=== PATIENT | female | born 1990 | race Caucasian/White ===

== ENCOUNTER 2018-07-28 21:04 | Inpatient (IN) | payer OTHER, MEDICAID ==
[2018-07-28 22:23] LABS: HEMATOCRIT 39.6 % (36.0-47.0); HEMOGLOBIN 13.7 g/dl (12.0-15.5); MEAN CORPUSCULAR HEMOGLOBIN 31.7 pg (27.0-33.0); MEAN CORPUSCULAR HGB CONC 34.6 g/dl (32.0-36.5); MEAN CORPUSCULAR VOLUME 91.7 fl (80.0-96.0); PLATELET COUNT, AUTOMATED 230 10^3/uL (150-450); RED BLOOD COUNT 4.32 10^6/uL (4.00-5.40); RED CELL DISTRIBUTION WIDTH 12.6 % (11.5-14.5); WHITE BLOOD COUNT 8.5 10^3/uL (4.0-10.0)
[2018-07-28 22:34] LABS: CONTROL LINE HCG INT CTR LINE PRESENT; HCG, SERUM QUALITATIVE NEGATIVE (NEGATIVE)
[2018-07-28 22:37] LABS: AMPHETAMINES LEVEL URINE NEGATIVE (NEGATIVE); BARBITURATES URINE NEGATIVE (NEGATIVE); BENZODIAZEPINES URINE NEGATIVE (NEGATIVE); CANNABINOIDS URINE POSITIVE (NEGATIVE); COCAINE METABOLITE URINE NEGATIVE (NEGATIVE); METHADONE URINE NEGATIVE (NEGATIVE); OPIATES URINE NEGATIVE (NEGATIVE); PHENCYCLIDINE URINE NEGATIVE (NEGATIVE)
[2018-07-28 22:48] LABS: ACETAMINOPHEN LEVEL < 2.0 UG/ML (10.0-30.0); ALBUMIN 4.1 GM/DL (3.2-5.2); ALBUMIN/GLOBULIN RATIO 1.52 (1.00-1.93); ALKALINE PHOSPHATASE 59 U/L (45-117); ALT/SGPT 20 U/L (12-78); ANION GAP 10 MEQ/L (8-16); AST/SGOT 13 U/L (7-37); BILIRUBIN,DIRECT 0.2 MG/DL (0.0-0.2); BILIRUBIN,TOTAL 0.6 MG/DL (0.2-1.0); BLOOD UREA NITROGEN 10 MG/DL (7-18); CALCIUM LEVEL 8.3 MG/DL (8.5-10.1); CARBON DIOXIDE LEVEL 24 MEQ/L (21-32); CHLORIDE LEVEL 108 MEQ/L (98-107); CREATININE FOR GFR 0.71 MG/DL (0.55-1.30); ETHYL ALCOHOL (ETHANOL) < 0.003 % (0.000-0.010); GLOMERULAR FILTRATION RATE > 60.0 (>60); GLUCOSE, FASTING 83 MG/DL (70-100); POTASSIUM SERUM 3.6 MEQ/L (3.5-5.1); SALICYLATE LEVEL 3.2 MG/DL (5.0-30.0); SODIUM LEVEL 142 MEQ/L (136-145); TOTAL PROTEIN 6.8 GM/DL (6.4-8.2)
[2018-07-28] MEDS ORDERED: MAALOX 30 ML SUSP *UDC PO (23:00)
[2018-07-28] MEDS ORDERED: MOM 30ML SUSPENSION UDC PO (23:00)
[2018-07-29] MEDS: traZODone 50 MG TAB PO (00:44)
[2018-07-29] MEDS: ACETAMINOPHEN TAB 650MG DOSE (2X325MG) PO ×2 (00:45→15:27)
[2018-07-29] MEDS: OMEPRAZOLE 20 MG CAP PO (09:58)
[2018-07-29] MEDS: INFLUENZA QUADRIVALENT PF VACCINE 0.5ML SYRINGE (90686) IM (10:05)
[2018-07-29] MEDS: NICOTINE 21MG/24HR 1 EA TRANSDERMAL TD (10:05)
[2018-07-29] MEDS ORDERED: hydrOXYzine 25 MG TAB PO (23:00)
[2018-07-29] MEDS: PROMETHAZINE 25 MG TAB PO (23:22)
[2018-07-29] MEDS: QUEtiapine FUMARATE 100 MG TAB PO (23:23)
[2018-07-30] MEDS: PROMETHAZINE 25 MG TAB PO (08:36)
[2018-07-30] MEDS: OMEPRAZOLE 20 MG CAP PO (08:36)
[2018-07-30] MEDS: NADOLOL 20MG TABLET PO (08:39)
[2018-07-30] MEDS: NICOTINE 21MG/24HR 1 EA TRANSDERMAL TD (08:39)
[2018-07-30] MEDS ORDERED: PROMETHAZINE 25 MG TAB PO (09:00)
[2018-07-30] MEDS ORDERED: hydrOXYzine 25 MG TAB PO (09:00)
[2018-07-30 11:16] LABS: BEDSIDE GLUCOSE 122 MG/DL (70-105)
[2018-07-30] MEDS: ACETAMINOPHEN 500 MG TAB PO (14:09)
[2018-07-30] MEDS ORDERED: QUEtiapine FUMARATE 100 MG TAB PO (21:00)
== END 2018-07-30 14:35 | disposition short-term general hospital (02) | DRG 753 ==
LOC: M ED 21:04 → M ED INP 22:47 → M PSY 23:45
DX: F31.60 Bipolar disorder, current episode mixed, unspecified (principal); Z91.14 Patient's other noncompliance with medication regimen; R45.851 Suicidal ideations; F12.90 Cannabis use, unspecified, uncomplicated; F60.3 Borderline personality disorder; K52.9 Noninfective gastroenteritis and colitis, unspecified; G47.00 Insomnia, unspecified; Z68.1 Body mass index [BMI] 19.9 or less, adult; F17.200 Nicotine dependence, unspecified, uncomplicated; Z79.899 Other long term (current) drug therapy

== ENCOUNTER 2018-07-30 14:53 | Inpatient (IN) | payer OTHER ==
[~2018-07-30 14:53] MED LIST: hydrOXYzine 25 MG TAB PO
[2018-07-30] MEDS: ACETAMINOPHEN 325 MG TAB PO (15:30)
[2018-07-30 15:57] LABS: BASO % 0.4 % (0.0-1.0); EOS # 0.2 10^3/uL (0.0-0.50); EOS % 2.8 % (0.0-3.0); HEMATOCRIT 38.9 % (36.0-47.0); HEMOGLOBIN 13.6 g/dl (12.0-15.5); IMMATURE GRANULOCYTE % 0.2 % (0-3.0); LYMPH # 1.6 10^3/uL (1.5-6.5); LYMPH % 19.3 % (24.0-44.0); MEAN CORPUSCULAR HEMOGLOBIN 31.6 pg (27.0-33.0); MEAN CORPUSCULAR VOLUME 90.3 fl (80.0-96.0); MONO # 0.5 10^3/uL (0.0-0.8); MONO % 6.1 % (0.0-5.0); NEUTROPHILS # 5.8 10^3/uL (1.8-7.7); NEUTROPHILS % 71.2 % (36.0-66.0); PLATELET COUNT, AUTOMATED 234 10^3/uL (150-450); RED BLOOD COUNT 4.31 10^6/uL (4.00-5.40); RED CELL DISTRIBUTION WIDTH 12.5 % (11.5-14.5); WHITE BLOOD COUNT 8.2 10^3/uL (4.0-10.0)
[2018-07-30 16:12] LABS: LACTIC ACID SEPSIS PROTOCOL 0.7 MMOL/L (0.4-2.0)
[2018-07-30 16:20] LABS: ANION GAP 4 MEQ/L (8-16); BLOOD UREA NITROGEN 13 MG/DL (7-18); C REACTIVE PROTEIN QUANTITATIV < 0.30 MG/DL (0.00-0.30); CALCIUM LEVEL 8.4 MG/DL (8.5-10.1); CARBON DIOXIDE LEVEL 27 MEQ/L (21-32); CHLORIDE LEVEL 108 MEQ/L (98-107); CREATININE FOR GFR 0.75 MG/DL (0.55-1.30); GLOMERULAR FILTRATION RATE > 60.0 (>60); GLUCOSE, FASTING 99 MG/DL (70-100); SODIUM LEVEL 139 MEQ/L (136-145); THYROID STIMULATING HORMONE 0.544 uIU/ML (0.358-3.740); TROPONIN I < 0.02 NG/ML (< 0.10)
[2018-07-30] MEDS: GASTROGRAFIN SOLUTION 30ML PO ×2 (16:24→16:53)
[2018-07-30] MEDS: METOCLOPRAMIDE INJ 10MG/2ML VIAL (J2765) IV (16:36)
[2018-07-30] MEDS: PANTOPRAZOLE 40MG INJ (PROTONIX) (C9113) IV (16:36)
[2018-07-30 16:37] LABS: ERYTHROCYTE SEDIMENTATION RATE 2 mm/hr (0-20)
[2018-07-30] MEDS: NS 1,000 ML IV (16:37)
[2018-07-30] MEDS ORDERED: ISOVUE-370 76% 100ML VIAL (Q9967) As Ordered (17:52)
[2018-07-30] MEDS ORDERED: KETOROLAC TROMETHAMINE 10 MG TAB PO (19:00)
[2018-07-30] MEDS: traMADol 50 MG TAB PO (19:06)
[2018-07-30] MEDS: ONDANSETRON 4 MG TAB (S0181) PO (19:07)
[2018-07-30] MEDS ORDERED: PILL CRUSHER/CUTTER 1 EACH XX (19:45)
[2018-07-30] MEDS ORDERED: QUEtiapine FUMARATE 200 MG TAB PO (21:00)
[2018-07-30] MEDS: ENOXAPARIN 30 MG/0.3 ML SYR (J1650) SC (21:03)
[2018-07-30] MEDS: QUEtiapine FUMARATE 100 MG TAB PO (21:03)
[2018-07-30] MEDS: ACETAMINOPHEN TAB 650MG DOSE (2X325MG) PO (22:59)
[2018-07-31 02:13] LABS: APPEARANCE, URINE HAZY (CLEAR); BACTERIA, URINE AUTO NEGATIVE (NEGATIVE); BILIRUBIN, URINE AUTO NEGATIVE (NEGATIVE); BLOOD, URINE BLOOD NEGATIVE (NEGATIVE); COLOR, URINE YELLOW (YELLOW); GLUCOSE, URINE (UA) AUTO NEGATIVE (NEGATIVE); KETONE, URINE AUTO NEGATIVE (NEGATIVE); LEUKOCYTE ESTERASE, URINE AUTO NEGATIVE (NEGATIVE); NITRITE, URINE AUTO NEGATIVE (NEGATIVE); PROTEIN, URINE AUTO NEGATIVE (NEGATIVE); RBC, URINE AUTO 0 /HPF (0-3); SPECIFIC GRAVITY URINE AUTO 1.035 (1.002-1.035); SQUAMOUS EPITHELIAL CELL UR AU 13 /HPF (0-6); WBC, URINE AUTO 3 /HPF (0-3)
[2018-07-31 02:48] LABS: TROPONIN I < 0.02 NG/ML (< 0.10)
[2018-07-31] MEDS: traMADol 50 MG TAB PO ×2 (05:21→13:35)
[2018-07-31] MEDS: NS 1,000 ML IV (05:22)
[2018-07-31 06:25] LABS: HEMATOCRIT 36.3 % (36.0-47.0); HEMOGLOBIN 12.3 g/dl (12.0-15.5); MEAN CORPUSCULAR HEMOGLOBIN 31.3 pg (27.0-33.0); MEAN CORPUSCULAR HGB CONC 33.9 g/dl (32.0-36.5); MEAN CORPUSCULAR VOLUME 92.4 fl (80.0-96.0); PLATELET COUNT, AUTOMATED 185 10^3/uL (150-450); RED BLOOD COUNT 3.93 10^6/uL (4.00-5.40); RED CELL DISTRIBUTION WIDTH 12.5 % (11.5-14.5); WHITE BLOOD COUNT 6.2 10^3/uL (4.0-10.0)
[2018-07-31 06:32] LABS: ANION GAP 7 MEQ/L (8-16); BLOOD UREA NITROGEN 8 MG/DL (7-18); CALCIUM LEVEL 7.7 MG/DL (8.5-10.1); CARBON DIOXIDE LEVEL 24 MEQ/L (21-32); CHLORIDE LEVEL 109 MEQ/L (98-107); CREATININE FOR GFR 0.73 MG/DL (0.55-1.30); GLOMERULAR FILTRATION RATE > 60.0 (>60); GLUCOSE, FASTING 104 MG/DL (70-100); POTASSIUM SERUM 3.5 MEQ/L (3.5-5.1); SODIUM LEVEL 140 MEQ/L (136-145); TROPONIN I < 0.02 NG/ML (< 0.10)
[2018-07-31] MEDS: CHLORHEXIDINE GLUCONATE 0.12 % 15ML UDC (PERIDEX ORAL RINSE) SSP ×2 (09:00)
[2018-07-31] MEDS: PANTOPRAZOLE 40MG INJ (PROTONIX) (C9113) IV (09:56)
[2018-07-31] MEDS: NICOTINE 21MG/24HR 1 EA TRANSDERMAL TD (12:29)
== END 2018-07-31 15:20 | disposition home or self-care (01) | DRG 204 ==
LOC: M PCU 14:53
DX: R55 Syncope and collapse (principal); R45.851 Suicidal ideations; R11.2 Nausea with vomiting, unspecified; E86.1 Hypovolemia; I34.0 Nonrheumatic mitral (valve) insufficiency; F31.60 Bipolar disorder, current episode mixed, unspecified; S01.409A Unspecified open wound of unspecified cheek and temporomandibular area, initial encounter; S01.501A Unspecified open wound of lip, initial encounter; W18.30XA Fall on same level, unspecified, initial encounter; Y92.009 Unspecified place in unspecified non-institutional (private) residence as the place of occurrence of the external cause; K52.9 Noninfective gastroenteritis and colitis, unspecified; Z79.899 Other long term (current) drug therapy; Z88.8 Allergy status to other drugs, medicaments and biological substances; Z91.14 Patient's other noncompliance with medication regimen; F41.9 Anxiety disorder, unspecified; F60.3 Borderline personality disorder; F12.90 Cannabis use, unspecified, uncomplicated

== ENCOUNTER → 2019-04-19 | Outpatient (CLI) | payer MEDICAID ==
[~2019-04-19] MED LIST changes: +ACET500T15 PO; +HYDR-3363 PO; +IBUP1TAB7 PO; +IBUP80TA PO; +MAPA500T17 PO; +NADO20TA PO; +NADO20TA2 PO; +OMEP40CA2 PO; +OXYC1TAB23 PO; +PRENTAB55 PO; +PRENTAB74 PO; +PROM50TA4 PO; +SERO1TAB PO; +SERO200T PO; +SERO400T PO; -hydrOXYzine 25 MG TAB PO
[2019-04-21 11:01] LABS: HEPATITIS A ANTIBODY IGM NEGATIVE (NEGATIVE); HEPATITIS B CORE ANTIBODY IGM NEGATIVE (NEGATIVE); HEPATITIS B SURFACE ANTIGEN NEGATIVE (NEGATIVE); HEPATITIS C VIRUS ABY INDEX 0.1 INDEX (<0.8); HIV 1&2 SCREEN CENTAUR NEGATIVE (NEGATIVE)
== END ==
LOC: M LAB 17:01
PROVIDERS: ATTEND Advanced Practice Midwife
DX: Z11.3 Encounter for screening for infections with a predominantly sexual mode of transmission (principal)

== ENCOUNTER → 2019-04-19 | Outpatient (REF) | payer MEDICAID ==
[2019-04-20 15:43] LABS: CHLAMYDIA DNA AMPLIFICATION NEGATIVE (NEGATIVE); GC DNA AMPLIFICATION NEGATIVE (NEGATIVE)
== END ==
LOC: M LAB REF 13:09
PROVIDERS: ATTEND Advanced Practice Midwife
DX: Z11.3 Encounter for screening for infections with a predominantly sexual mode of transmission (principal); Z12.4 Encounter for screening for malignant neoplasm of cervix

== ENCOUNTER → 2019-05-01 | Outpatient (REF) | payer MEDICAID | LOC: M LAB REF 09:51 | PROVIDERS: ATTEND Advanced Practice Midwife | DX: Z12.4 Encounter for screening for malignant neoplasm of cervix (principal) ==

== ENCOUNTER → 2019-05-12 | Outpatient (REF) | payer MEDICAID, OTHER ==
[~2019-05-12] MED LIST changes: -OMEP40CA2 PO; +OMEP40CA97 PO
== END ==
LOC: M LAB REF 16:58
PROVIDERS: ATTEND Obstetrics & Gynecology
DX: R87.612 Low grade squamous intraepithelial lesion on cytologic smear of cervix (LGSIL) (principal)

== ENCOUNTER 2019-11-02 19:07 | Emergency (ER) | payer MEDICAID, OTHER ==
[~2019-11-02] VITALS: Ht 162.6 cm; Wt 54.5 kg
[2019-11-02 19:25] VITALS: BP 123/83
[2019-11-02] MEDS ORDERED: XANA0.25 PO (19:35)
[2019-11-02] MEDS ORDERED: ABIL1TAB11 PO (19:35)
== END 2019-11-02 20:30 | disposition home or self-care (01) ==
LOC: M ED 19:07
DX: F32.9 Major depressive disorder, single episode, unspecified (principal); S40.922A Unspecified superficial injury of left upper arm, initial encounter; X78.8XXA Intentional self-harm by other sharp object, initial encounter; Y92.9 Unspecified place or not applicable; Y93.9 Activity, unspecified; Y99.9 Unspecified external cause status; F17.200 Nicotine dependence, unspecified, uncomplicated; Z56.9 Unspecified problems related to employment; Z79.899 Other long term (current) drug therapy; Z88.8 Allergy status to other drugs, medicaments and biological substances; Z91.5 Personal history of self-harm

== ENCOUNTER 2019-11-13 12:50 | Emergency (ER) | payer OTHER ==
[~2019-11-13] VITALS: Ht 162.6 cm; Wt 56.4 kg
[~2019-11-13 12:50] MED LIST changes: +ABIL1TAB11 PO; +XANA0.25 PO
[2019-11-13] MEDS ORDERED: METO1TAB7 PO (13:02)
[2019-11-13] MEDS ORDERED: OXYC1TAB23 PO (13:02)
[2019-11-13] MEDS ORDERED: METH4PACK PO (13:02)
[2019-11-13] MEDS ORDERED: IBUP-1022 PO (13:02)
[2019-11-13] MEDS ORDERED: NS 1,000 ML IV ONE (13:30)
[2019-11-13] MEDS ORDERED: METOCLOPRAMIDE INJ 10MG/2ML VIAL (J2765) IV ONE (13:30)
[2019-11-13] MEDS ORDERED: KETOROLAC 30 MG/ML VIAL (J1885) IV ONE (13:30)
[2019-11-13 13:43] LABS: BASO % 0.3 % (0.0-1.0); EOS # 0.1 10^3/uL (0.0-0.5); EOS % 0.8 % (0.0-3.0); HEMATOCRIT 40.7 % (36.0-47.0); HEMOGLOBIN 13.9 g/dl (12.0-15.5); MEAN CORPUSCULAR HEMOGLOBIN 32.2 pg (27.0-33.0); MEAN CORPUSCULAR HGB CONC 34.2 g/dl (32.0-36.5); MEAN CORPUSCULAR VOLUME 94.2 fl (80.0-96.0); MONO # 0.6 10^3/uL (0.0-0.8); MONO % 4.8 % (0.0-5.0); NEUTROPHILS # 9.7 10^3/uL (1.5-8.5); NEUTROPHILS % 84.4 % (36.0-66.0); PLATELET COUNT, AUTOMATED 171 10^3/uL (150-450); RED BLOOD COUNT 4.32 10^6/uL (4.00-5.40); WHITE BLOOD COUNT 11.5 10^3/uL (4.0-10.0)
[2019-11-13 14:10] LABS: ALBUMIN 3.5 GM/DL (3.2-5.2); BILIRUBIN,DIRECT 0.3 MG/DL (0.0-0.2); BILIRUBIN,TOTAL 1.6 MG/DL (0.2-1.0); TOTAL PROTEIN 6.8 GM/DL (6.4-8.2)
[2019-11-13] MEDS ORDERED: ONDA4TAB6 PO (15:36)
[2019-11-13] MEDS ORDERED: MACR100C43 PO (15:36)
[2019-11-13 15:50] VITALS: BP 107/55
[2019-11-13] MEDS ORDERED: ACETAMINOPHEN 325 MG TAB PO ONE (16:00)
--- NOTE | 2019-11-13 16:36 | REP ---
PELVIC ULTRASOUND: Real-time sonographic evaluation of the pelvis performed utilizing transabdominal and endovaginal technique. The bladder is not distended. Uterus is retroverted and measures 8.8 x 3.8 x 6.0 cm. Endometrial thickness is 9 mm. Right ovary measures 4.2 x 2.3 x 3.0 cm and left ovary 4.0 x 2.1 x 2.6 cm. There is a simple cyst in the right ovary 3.1 x 2.5 x 2.7 cm. There is a complex dominant follicle of the left ovary 1.9 x 1.7 x 1.7 cm. No torsion is seen of either ovary with duplex Doppler evaluation. No free fluid is seen. IMPRESSION: Simple cyst right ovary 3.1 cm in diameter. No torsion. No free fluid. Appendix could not be visualized. Electronically Signed by Gideon Murguia MD 11/13/2019 04:37 P
== END 2019-11-13 16:02 | disposition home or self-care (01) ==
LOC: M ED 12:50
DX: N83.201 Unspecified ovarian cyst, right side (principal); N39.0 Urinary tract infection, site not specified; K50.90 Crohn's disease, unspecified, without complications; Z88.8 Allergy status to other drugs, medicaments and biological substances; Z79.899 Other long term (current) drug therapy
CPT/HCPCS: 76830; 76856; 80047; 80076; 81001; 83690; 85025; 87088; 87186; 93976; 96361; 96374; 96375; 99284; J1885; J2765

== ENCOUNTER → 2020-01-22 | Outpatient (CLI) | payer OTHER ==
[~2020-01-22] MED LIST changes: +IBUP-1022 PO; +MACR100C43 PO; +METH4PACK PO; +METO1TAB7 PO; +ONDA4TAB6 PO
== END ==
LOC: M LABSMTC 10:28
PROVIDERS: ATTEND Anesthesiology
DX: Z03.818 Encounter for observation for suspected exposure to other biological agents ruled out (principal); Z11.59 Encounter for screening for other viral diseases
CPT/HCPCS: 87486; 87581; 87633; 87798; C9803

== ENCOUNTER 2020-01-24 07:58 | Day surgery (SDC) | payer OTHER ==
[~2020-01-24] VITALS: Ht 162.6 cm; Wt 52.2 kg
[~2020-01-24 07:58] MED LIST changes: +BUPIVACAINE HCL 0.25% 30ML VIAL As Ordered ONE; +HYDROmorphone HCL 2 MG/ML 1ML VIAL (J1170) As Ordered ONE; +KETOROLAC 60MG 2ML VIAL As Ordered ONE; +LIDOCAINE 2% 100MG/5ML SDV (FOR ANES.) As Ordered ONE; +LR 1,000 ML IV ONE; +MIDAZOLAM INJ 2MG/2ML VIAL (J2250 PER 1MG) As Ordered ONE; +ONDANSETRON 4MG/2ML VIAL As Ordered ONE; +ROCURONIUM BROMIDE 50 MG/5 ML VIAL As Ordered ONE; +dexameTHASONE 4 MG/ML 1ML VIAL (J1100 PER 1MG) As Ordered ONE; +fentaNYL 100 MCG/2 ML INJECTION (J3010) As Ordered ONE; +propofoL 200 MG/20 ML VIAL As Ordered ONE
[2020-01-24 08:26] LABS: HEMATOCRIT 43.3 % (36.0-47.0); HEMOGLOBIN 14.8 g/dl (12.0-15.5); MEAN CORPUSCULAR HEMOGLOBIN 31.5 pg (27.0-33.0); MEAN CORPUSCULAR HGB CONC 34.2 g/dl (32.0-36.5); MEAN CORPUSCULAR VOLUME 92.1 fl (80.0-96.0); PLATELET COUNT, AUTOMATED 195 10^3/uL (150-450); WHITE BLOOD COUNT 5.8 10^3/uL (4.0-10.0)
[2020-01-24] MEDS ORDERED: SCOPOLAMINE 1MG TRANSDERMAL PATCH As Ordered ONE (08:41)
[2020-01-24] MEDS ORDERED: SCOPOLAMINE 1MG TRANSDERMAL PATCH TOP ONE (08:45)
[2020-01-24] MEDS ORDERED: OXYC1TAB23 PO (08:47)
[2020-01-24] MEDS ORDERED: SUCCINYLCHOLINE 100 MG/5 ML SYRINGE (J0330) As Ordered ONE (08:54)
[2020-01-24] MEDS ORDERED: ACETAMINOPHEN 1000MG 100ML IV BTL (OFIRMEV) (J0131 PER 10MG) As Ordered ONE (09:09)
[2020-01-24] MEDS ORDERED: SUGAMMADEX SODIUM 500 MG/5 ML VIAL (BRIDION) As Ordered ONE (09:16)
[2020-01-24] MEDS: oxyCODONE 5MG TAB PO PRN ×2 (10:08→10:35)
[2020-01-24] MEDS ORDERED: ONDANSETRON 4MG/2ML VIAL IV PRN (10:15)
[2020-01-24] MEDS ORDERED: LR 1,000 ML IV SCH (10:15)
[2020-01-24] MEDS: fentaNYL 100 MCG/2 ML INJECTION (J3010) IV PRN ×2 (10:34→10:44)
[2020-01-24 10:50] VITALS: BP 115/65
--- NOTE | 2020-01-25 12:26 | RO ---
DATE OF PROCEDURE: 01/24/2020 PREPROCEDURE DIAGNOSIS: Right ovarian cyst with chronic right pelvic pain. POSTPROCEDURE DIAGNOSIS: Right ovarian cyst with chronic right pelvic pain. PROCEDURE: Right salpingo-oophorectomy, laparoscopic. SURGEON: Dr. Marcos Akins FUR MATCHER: ANESTHESIA: General endotracheal. ESTIMATED BLOOD LOSS: 10 mL. URINE OUTPUT: 50 mL. FINDINGS: Small right ovarian cyst. Otherwise normal pelvis, including uterus, fallopian tubes and ovaries. No evidence of endometriosis. Normal upper abdomen, including liver, stomach and intestines. DESCRIPTION OF PROCEDURE: The patient was taken to the operating room where general endotracheal anesthesia was induced. She was prepped and draped in sterile fashion in the dorsal lithotomy position. A Funez catheter was placed. A H2020 tenaculum was used as a manipulator. A periumbilical incision made with the scalpel. Veress needle was placed through this incision while tenting up on the skin of the abdomen. Intraabdominal location of the Veress needle was assessed using saline filled syringe. Pneumoperitoneum was created. The Veress needle was removed. 11 mm trocar using Visiport was inserted through this incision. Two 5 mm suprapubic ports were placed under direct visualization. Using a grasping instrument and LigaSure device the right ovary and remnants of fallopian tube were elevated. LigaSure device used to coagulate and incise the IP ligament, broad ligament attachments and utero-ovarian ligament. The specimen was freed. The ureter was identified away from the operating site at all times. Specimen was placed in Endo Catch bag and withdrawn through the umbilical port. The fascia of the umbilical port was closed with a single interrupted suture of #0 Vicryl. The skin was closed with #4-0 Monocryl subcuticular sutures. Sponge, instrument and needle counts were correct.
== END 2020-01-24 11:40 | disposition home or self-care (01) ==
LOC: M SDC 07:58
PROVIDERS: ATTEND Specialist
DX: N83.291 Other ovarian cyst, right side (principal); R10.2 Pelvic and perineal pain; K50.90 Crohn's disease, unspecified, without complications; Z79.899 Other long term (current) drug therapy; F31.9 Bipolar disorder, unspecified; F17.218 Nicotine dependence, cigarettes, with other nicotine-induced disorders; I34.1 Nonrheumatic mitral (valve) prolapse; Z88.8 Allergy status to other drugs, medicaments and biological substances
CPT/HCPCS: 36415; 58661; 81025; 85027; 88307; J0131; J0330; J1100; J1170; J2250; J2405; J3010

== ENCOUNTER → 2021-04-07 | Outpatient (REF) | payer OTHER ==
[~2021-04-07] MED LIST changes: -BUPIVACAINE HCL 0.25% 30ML VIAL As Ordered ONE; -HYDROmorphone HCL 2 MG/ML 1ML VIAL (J1170) As Ordered ONE; -KETOROLAC 60MG 2ML VIAL As Ordered ONE; -LIDOCAINE 2% 100MG/5ML SDV (FOR ANES.) As Ordered ONE; -LR 1,000 ML IV ONE; -MIDAZOLAM INJ 2MG/2ML VIAL (J2250 PER 1MG) As Ordered ONE; +OMEP40CA4 PO; -OMEP40CA97 PO; -ONDANSETRON 4MG/2ML VIAL As Ordered ONE; -ROCURONIUM BROMIDE 50 MG/5 ML VIAL As Ordered ONE; -dexameTHASONE 4 MG/ML 1ML VIAL (J1100 PER 1MG) As Ordered ONE; -fentaNYL 100 MCG/2 ML INJECTION (J3010) As Ordered ONE; -propofoL 200 MG/20 ML VIAL As Ordered ONE
== END ==
LOC: M SFHCPLAZ 13:15
PROVIDERS: ATTEND Family Medicine
DX: R19.7 Diarrhea, unspecified (principal)

== ENCOUNTER → 2021-04-07 | Outpatient (CLI) | payer OTHER ==
[2021-04-07 14:30] LABS: BASO # 0.1 10^3/uL (0.0-0.2); BASO % 0.8 % (0.0-1.0); EOS # 0.2 10^3/uL (0.0-0.5); EOS % 3.6 % (0.0-3.0); HEMATOCRIT 43.1 % (36.0-47.0); HEMOGLOBIN 14.6 g/dl (12.0-15.5); LYMPH # 2.5 10^3/uL (1.5-5.0); LYMPH % 40.5 % (24.0-44.0); MEAN CORPUSCULAR HEMOGLOBIN 31.8 pg (27.0-33.0); MEAN CORPUSCULAR HGB CONC 33.9 g/dl (32.0-36.5); MEAN CORPUSCULAR VOLUME 93.9 fl (80.0-96.0); MONO # 0.4 10^3/uL (0.0-0.8); MONO % 6.5 % (2.0-8.0); NEUTROPHILS % 48.4 % (36.0-66.0); PLATELET COUNT, AUTOMATED 217 10^3/uL (150-450); RED BLOOD COUNT 4.59 10^6/uL (4.00-5.40); WHITE BLOOD COUNT 6.2 10^3/uL (4.0-10.0)
[2021-04-07 15:06] LABS: ALBUMIN 4.1 GM/DL (3.2-5.2); ALT/SGPT 23 U/L (12-78); BILIRUBIN,TOTAL 0.6 MG/DL (0.2-1.0); BLOOD UREA NITROGEN 8 MG/DL (7-18); CALCIUM LEVEL 8.9 MG/DL (8.5-10.1); CARBON DIOXIDE LEVEL 27 MEQ/L (21-32); CHLORIDE LEVEL 111 MEQ/L (98-107); CREATININE FOR GFR 0.67 MG/DL (0.55-1.30); FREE T4 0.89 NG/DL (0.76-1.46); GLOMERULAR FILTRATION RATE > 60.0 (>60); GLUCOSE, FASTING 88 MG/DL (70-100); POTASSIUM SERUM 4.2 MEQ/L (3.5-5.1); SODIUM LEVEL 141 MEQ/L (136-145); TOTAL PROTEIN 7.1 GM/DL (6.4-8.2)
== END ==
LOC: M PLALAB 11:00
PROVIDERS: ATTEND Family Medicine
DX: N93.9 Abnormal uterine and vaginal bleeding, unspecified (principal); R19.7 Diarrhea, unspecified

== ENCOUNTER → 2021-05-05 | Outpatient (CLI) | payer OTHER ==
[2021-05-05 13:21] LABS: BASO # 0.1 10^3/uL (0.0-0.2); BASO % 0.6 % (0.0-1.0); EOS # 0.2 10^3/uL (0.0-0.5); EOS % 2.2 % (0.0-3.0); HEMATOCRIT 41.8 % (36.0-47.0); HEMOGLOBIN 14.1 g/dl (12.0-15.5); LYMPH # 2.3 10^3/uL (1.5-5.0); LYMPH % 25.1 % (24.0-44.0); MEAN CORPUSCULAR HEMOGLOBIN 31.6 pg (27.0-33.0); MEAN CORPUSCULAR HGB CONC 33.7 g/dl (32.0-36.5); MEAN CORPUSCULAR VOLUME 93.7 fl (80.0-96.0); MONO # 0.4 10^3/uL (0.0-0.8); MONO % 4.6 % (2.0-8.0); NEUTROPHILS # 6.1 10^3/uL (1.5-8.5); NEUTROPHILS % 67.2 % (36.0-66.0); PLATELET COUNT, AUTOMATED 205 10^3/uL (150-450); RED BLOOD COUNT 4.46 10^6/uL (4.00-5.40); WHITE BLOOD COUNT 9.1 10^3/uL (4.0-10.0)
[2021-05-05 13:58] LABS: ALBUMIN 4.1 GM/DL (3.2-5.2); ALT/SGPT 18 U/L (12-78); BILIRUBIN,TOTAL 0.9 MG/DL (0.2-1.0); BLOOD UREA NITROGEN 10 MG/DL (7-18); CALCIUM LEVEL 8.8 MG/DL (8.5-10.1); CARBON DIOXIDE LEVEL 27 MEQ/L (21-32); CHLORIDE LEVEL 107 MEQ/L (98-107); CREATININE FOR GFR 0.81 MG/DL (0.55-1.30); GLOMERULAR FILTRATION RATE > 60.0 (>60); GLUCOSE, FASTING 90 MG/DL (70-100); LIPASE 63 U/L (73-393); POTASSIUM SERUM 4.1 MEQ/L (3.5-5.1); SODIUM LEVEL 138 MEQ/L (136-145); TOTAL PROTEIN 6.8 GM/DL (6.4-8.2)
[2021-05-05 14:00] LABS: HCG, SERUM QUALITATIVE NEGATIVE (NEGATIVE)
== END ==
LOC: M PLALAB 10:03
PROVIDERS: ATTEND Family Medicine
DX: R10.10 Upper abdominal pain, unspecified (principal); R11.2 Nausea with vomiting, unspecified

== ENCOUNTER → 2021-05-07 | Outpatient (REF) | payer OTHER, MEDICAID | LOC: M SFHCWAGY 14:20 | PROVIDERS: ATTEND Obstetrics & Gynecology | DX: Z12.4 Encounter for screening for malignant neoplasm of cervix (principal); R87.612 Low grade squamous intraepithelial lesion on cytologic smear of cervix (LGSIL); N93.9 Abnormal uterine and vaginal bleeding, unspecified; R10.2 Pelvic and perineal pain; G89.29 Other chronic pain ==

== ENCOUNTER → 2021-05-22 | Outpatient (CLI) | payer OTHER ==
--- NOTE | 2021-05-22 15:28 | REP ---
INDICATION: ABNORMAL UTERINE BLEEDING COMPARISON: None. TECHNIQUE: Transabdominal pelvic ultrasound followed by transvaginal examination for better evaluation of the endometrium and adnexa with color Doppler evaluation of the ovaries. FINDINGS: Bladder is unremarkable and measures 10.1 x 9.2 x 10.3 cm. Normal anteverted uterus measures 8.0 x 4.3 x 5.5 cm. The endometrial complex measures 9.0 mm thickness. No discrete uterine or endometrial abnormalities are appreciated. Left ovary is normal in appearance and vascularity without evidence for torsion. Left ovary measures 3.7 x 2.2 x 3.0 cm; R I = 0.49. No pelvic fluid or adnexal mass lesion. IMPRESSION: Normal uterus and left ovary. <Electronically signed by Sachin Hernandes > 05/22/21 1930
== END ==
LOC: M WHC 14:47
PROVIDERS: ATTEND Obstetrics & Gynecology
DX: N93.9 Abnormal uterine and vaginal bleeding, unspecified (principal)

== ENCOUNTER → 2021-05-29 | Outpatient (CLI) | payer OTHER ==
--- NOTE | 2021-05-29 09:03 | REP ---
INDICATION: RUQ PAIN AND EPIGASTRIC PAIN WITH PERSISTENT NAUSEA AND VOMI COMPARISON: CT dated 07/30/2018 TECHNIQUE: Real time grewal scale ultrasound examination using curved array transducer. FINDINGS: Liver and pancreas are normal in contour, size, and echogenicity without focal hepatic or pancreatic lesions identified. The gallbladder is normal and without gallstones, wall thickening, or pericholecystic fluid. No biliary ductal dilatation is appreciated and the common bile duct measures 2.0 mm diameter. Right kidney is normal in reniform shape without hydronephrosis and measures 10.1 x 4.4 x 6.3 cm. A small 9 mm round hypoechoic mass versus complex cyst is identified in the midpole region and the prior CT demonstrates a 2 cm simple cyst at the same area suggesting possible involution of the benign cyst. No ascites in the visualized right upper quadrant. Visualized abdominal aorta appears normal. IMPRESSION: 1. Essentially normal examination. 2. Small 9 mm lesion within the right kidney may represent chronic involuting cyst as suggested by prior CT which demonstrated 2 cm simple cyst at the same area. Consider 6 month follow-up ultrasound if necessary to confirm stability. <Electronically signed by Sachin Hernandes > 05/29/21 [id number]
== END ==
LOC: M WHC 08:07
PROVIDERS: ATTEND Family Medicine
DX: N28.9 Disorder of kidney and ureter, unspecified (principal); R10.11 Right upper quadrant pain

== ENCOUNTER → 2021-06-09 | Outpatient (REF) | payer OTHER, MEDICAID | LOC: M SFHCWAGY 19:25 | PROVIDERS: ATTEND Obstetrics & Gynecology | DX: R87.612 Low grade squamous intraepithelial lesion on cytologic smear of cervix (LGSIL) (principal) ==

== ENCOUNTER → 2021-06-20 | Outpatient (CLI) | payer OTHER ==
[~2021-06-20] MED LIST changes: +GASTROGRAFIN SOLUTION 30ML (Q9963) As Ordered ONE; +ISOVUE-370 76% 100ML VIAL As Ordered ONE
--- NOTE | 2021-06-20 14:21 | REP ---
INDICATION: UPPER/LOWER ABD PAIN. COMPARISON: 07/30/2018 TECHNIQUE: Standard helical technique after the intravenous administration of 100 cc Isovue 370 and oral bowel preparatory contrast administration. FINDINGS: The lung bases are clear. The liver, gallbladder, spleen, pancreas, adrenal glands, and kidneys are essentially unchanged. The cyst seen previously in the right kidney has, however, gotten smaller. There are no enhancing renal lesions. The abdominal aorta and para-aortic regions are within normal limits and essentially unchanged. The bowel loops and the mesenteries are within normal limits. There is no mass or adenopathy. There is no free fluid or free air. The osseous structures are stable and intact. IMPRESSION: There is no evidence of acute disease. <Electronically signed by Casey Suarez > 06/20/21 [id number]
== END ==
LOC: M RAD 12:10
PROVIDERS: ATTEND Family Medicine
DX: R10.10 Upper abdominal pain, unspecified (principal); R10.30 Lower abdominal pain, unspecified
CPT/HCPCS: 74177; Q9963; Q9967

== ENCOUNTER → 2021-07-21 | Outpatient (CLI) | payer OTHER ==
[~2021-07-21] MED LIST changes: +BUSP10TA; +COLA100C5 PO; -GASTROGRAFIN SOLUTION 30ML (Q9963) As Ordered ONE; -ISOVUE-370 76% 100ML VIAL As Ordered ONE; +METH36TA5 PO; +METO1TAB32 PO
== END ==
LOC: M LABSMTC 09:19
PROVIDERS: ATTEND Anesthesiology
DX: Z01.812 Encounter for preprocedural laboratory examination (principal); Z11.52 Encounter for screening for COVID-19

== ENCOUNTER 2021-07-25 08:35 | Day surgery (SDC) | payer OTHER ==
[~2021-07-25] VITALS: Ht 165.1 cm; Wt 55.7 kg
[2021-07-25] VITALS (7 sets, daily range): BP systolic 115–127; BP diastolic 68–81
[~2021-07-25 08:35] MED LIST changes: -BUSP10TA; -COLA100C5 PO; +LIDOCAINE 1% MDV 20ML VIAL SQ PRN; +LIDOCAINE 2% 100MG/5ML SDV (FOR ANES.) As Ordered ONE; +LR 1,000 ML IV ONE; -METH36TA5 PO; -METO1TAB32 PO; +ROCURONIUM BROMIDE 50 MG/5 ML VIAL As Ordered ONE; +SUGAMMADEX SODIUM 500 MG/5 ML VIAL (BRIDION) As Ordered ONE; +ceFAZolin SOD 2 GM in IV 1 EA IV ONE; +propofoL 200 MG/20 ML VIAL As Ordered ONE
[2021-07-25] MEDS ORDERED: METH36TA5 PO (08:48)
[2021-07-25] MEDS ORDERED: fentaNYL 100 MCG/2 ML INJECTION (J3010) As Ordered ONE ×2 (08:49→11:54)
[2021-07-25] MEDS ORDERED: MIDAZOLAM INJ 2MG/2ML VIAL (J2250 PER 1MG) As Ordered ONE (08:49)
[2021-07-25] MEDS ORDERED: dexameTHASONE 4 MG/ML 1ML VIAL (J1100 PER 1MG) As Ordered ONE (08:50)
[2021-07-25] MEDS ORDERED: ONDANSETRON 4MG/2ML VIAL As Ordered ONE (08:50)
[2021-07-25] MEDS ORDERED: METOPROLOL SUCC (TopROL XL) 50MG **XL** TAB PO SCH (09:00)
[2021-07-25] MEDS ORDERED: propofoL 200 MG/20 ML VIAL As Ordered ONE (09:08)
[2021-07-25 09:12] LABS: HEMATOCRIT 41.3 % (36.0-47.0); HEMOGLOBIN 14.1 g/dl (12.0-15.5); MEAN CORPUSCULAR HEMOGLOBIN 31.4 pg (27.0-33.0); MEAN CORPUSCULAR HGB CONC 34.1 g/dl (32.0-36.5); PLATELET COUNT, AUTOMATED 219 10^3/uL (150-450); RED BLOOD COUNT 4.49 10^6/uL (4.00-5.40); WHITE BLOOD COUNT 6.8 10^3/uL (4.0-10.0)
[2021-07-25 09:21] LABS: HCG, SERUM QUALITATIVE NEGATIVE (NEGATIVE)
[2021-07-25] MEDS ORDERED: BUPIVACAINE HCL 0.25% 30ML VIAL As Ordered ONE (09:43)
[2021-07-25] MEDS ORDERED: METHYLENE BLUE 0.5% (5MG/ML) 10 ML AMP (PROVAYBLUE) As Ordered ONE (09:43)
[2021-07-25] MEDS ORDERED: ACETAMINOPHEN 1000MG 100ML IV BTL (OFIRMEV) (J0131 PER 10MG) As Ordered ONE (11:14)
[2021-07-25] MEDS ORDERED: ONDANSETRON 4MG/2ML VIAL IV PRN ×2 (11:55→12:20)
[2021-07-25] MEDS ORDERED: MORPHINE 4 MG/ML 1ML VIAL/SYRINGE (J2270) IV PRN (12:00)
--- NOTE | 2021-07-25 12:03 | ROOPDOC ---
[facility] Report Of Operation Report of Operation DATE OF PROCEDURE: 07/25/2021 PREPROCEDURE DIAGNOSES: Abnormal uterine bleeding, chronic pelvic pain. POSTPROCEDURE DIAGNOSES: Same. PROCEDURE: Robotic-assisted total laparoscopic hysterectomy, cystoscopy SURGEON: Nader Soto D.O. FACOG INTELLIGENCE DIRECTOR: Odalis Green ANESTHESIA: General endotracheal. ESTIMATED BLOOD LOSS: Approximately 25 mL. FLUIDS REPLACED: 900 mL LR URINE OUTPUT: 50 mL COMPLICATIONS: None. FINDINGS: Normal-appearing left ovary, right ovary is surgically absent. Both fallopian tubes surgically absent. Uterus was approximately 9 centimeters in greatest dimension. Cystoscopy: Bilateral ureteral orifice efflux, no bladder injury/suture material. PREOPERATIVE ANTIBIOTIC PROPHYLAXIS: Ancef 2 g IV 1. SPECIMEN(S): Uterus w/ cervix DESCRIPTION OF PROCEDURE: The patient was counseled, consented on the respective benefits, indications, alternatives of procedure. Informed consent was obtained. She was taken to the operating room with an IV running. She was placed on the operating table in dorsal supine position. Gen. anesthesia was administered and the airway was secured without any difficulty. She was placed in the low lithotomy position. . She was prepared and draped in the normal sterile fashion. A time out was performed per protocol. A Funez catheter was placed under sterile conditions. A sterile speculum was placed resulting in good visualization of the cervix. A single-tooth tenaculum was used to grasp the anterior lip cervix. The cervix was sequentially dilated with Ambrosio dilators. A V-Care uterine manipulator was placed without any difficulty. The single-tooth tenaculum was removed, as well as the speculum. A sterile glove switch was performed. Attention was turned to the abdomen. An 8mm horizontal incision was made in the midline, approximately 4-5cm above the umbilicus. Through this incision, a Veress needle was inserted into the intraperitoneal cavity. Intraperitoneal placement was confirmed with ease of flow of normal saline, positive drop test, no return on aspiration, and an opening pressure of less than 10 mmHg upon initial insufflation. The abdomen was insufflated with 2 L of gas. The Veress needle was removed. Through this incision, the robotic trochar/cannula was inserted into the intraperitoneal cavity under direct visualization. No incidental bleeding nor injury was noted. Patient was placed in 30 Trendelenburg. The right and left trocars/cannulas were placed on both the right and left side through 8 mm incisions, guided by laparoscopic visualization. No incidental bleeding nor injury was noted. The robot was docked in typical fashion. The instruments were inserted, guided by laparoscopic visualization. My attention was turned to the robotic console. The right utero-ovarian ligament and right round ligament were sequentially clamped, coagulated and transected with the vessel sealer device. The vesicouterine peritoneum was dissected with the vessel sealer device to create the bladder flap, thus mobilizing the lower uterine segment and cervix off of the bladder. The right uterine vasculature was sequentially clamped, coagulated and transected above the colpotomy cup. The left utero-ovarian ligament and left round ligament were sequentially clamped, coagulated and transected with the vessel sealer device. The remainder of the bladder flap was dissected using the vessel sealer device and blunt dissection. The left uterine vasculature was sequentially clamped, coagulated and transected above the colpotomy cup. The outline of the entire V- care colpotomy cup was able to be delineated. Excellent blanching of the uterus was noted. A circumferential colpotomy was performed using the da Brent monopolar camilla, following the contour of the cup. The amputated cervix and uterus were brought through the colpotomy into and out of the vagina, intact as one unit. The colpotomy was closed with the V-lock barbed suture in running fashion, thus creating the vaginal cuff. Excellent hemostasis was noted throughout the steps above. Kristopher was placed over the vaginal cuff to ensure hemostasis. The instruments were removed from the abdomen and the robot was un- docked. The gas was released from the abdomen and the patient was taken out of Trendelenburg. I re-scrubbed, and attention was turned to the pelvis. The Funez catheter was removed. The cystoscope was placed transurethrally into the bladder and normal saline was instilled. No bladder injury/suture material was noted. IV methylene blue had been administered by anesthesia and bilateral UO efflux was confirmed. The fluid was drained out of the bladder through the cystoscope device, then the cystoscope was removed. The vagina was copiously irrigated. A sterile digital vaginal exam revealed no significant bleeding and an intact vaginal cuff. A sterile glove switch was performed. The da Brent cannulas were removed. The skin incisions were closed with 4-0 Monocryl in subcuticular fashion. Sponge, needle and instrument counts were correct per protocol. The patient tolerated the entire procedure very well. She was transferred to the PACU in good and stable condition. DO MAK Farooq JONATHAN R. DO Jul 25, 2021 12:03
[2021-07-25] MEDS ORDERED: fentaNYL 100 MCG/2 ML INJECTION (J3010) IV PRN (12:20)
[2021-07-25] MEDS ORDERED: oxyCODONE 5MG TAB PO PRN (12:20)
[2021-07-25] MEDS ORDERED: LR 1,000 ML IV SCH ×2 (12:20→13:00)
[2021-07-25] MEDS: HYDROMORPHONE HCL 0.5 MG/ 0.5 ML SYRINGE (J1170 PER 1) IV PRN ×2 (12:24→12:30)
[2021-07-25] MEDS: KETOROLAC 30 MG/ML 1ML VIAL IV SCH ×2 (13:00→15:36)
[2021-07-25] MEDS ORDERED: hydrOXYzine 25 MG TAB PO SCH (16:00)
[2021-07-25] MEDS ORDERED: COLA100C5 PO (19:02)
[2021-07-25] MEDS ORDERED: OXYC1TAB23 PO (19:02)
[2021-07-25] MEDS ORDERED: DOCUSATE SODIUM 100MG CAPSULE PO SCH (21:00)
--- NOTE | 2021-07-26 12:04 | ECGEPIP ---
[facility] Test Date: 2021-07-25 Pat Name: NIALL DUARTE Department: Room: - Gender: Female Bioassayist: JOLENE : 1990 Requested By: GIANNI Casarez Order Number: [id number] Reading MD: Montana Cota Measurements Intervals [place] Rate: 76 P: 40 MD: 152 QRS: 53 QRSD: 84 T: 37 QT: 366 QTc: 411 Interpretive Statements Normal sinus rhythm Compared to prior tracings(2) in the system. No remarkable changes Electronically Signed on 07-26-2021 12:04:38 EST by Montana Cota
== END 2021-07-25 19:23 | disposition home or self-care (01) ==
LOC: M SDC 08:35 → M MSPAV 12:52 → M SDC 19:23
PROVIDERS: ATTEND Obstetrics & Gynecology
DX: N93.9 Abnormal uterine and vaginal bleeding, unspecified (principal); R10.2 Pelvic and perineal pain; F31.9 Bipolar disorder, unspecified; F17.218 Nicotine dependence, cigarettes, with other nicotine-induced disorders; Z79.899 Other long term (current) drug therapy; E03.9 Hypothyroidism, unspecified; I34.1 Nonrheumatic mitral (valve) prolapse
CPT/HCPCS: 36415; 58570; 84703; 85027; 86850; 86900; 86901; 88307; 93005; J0131; J0690; J1100; J1170; J1885; J2250; J2405; J3010; Q9968; S2900

== ENCOUNTER → 2021-09-01 | Outpatient (CLI) | payer OTHER ==
[~2021-09-01] MED LIST changes: +COLA100C5 PO; -LIDOCAINE 1% MDV 20ML VIAL SQ PRN; -LIDOCAINE 2% 100MG/5ML SDV (FOR ANES.) As Ordered ONE; -LR 1,000 ML IV ONE; +METH36TA5 PO; -ROCURONIUM BROMIDE 50 MG/5 ML VIAL As Ordered ONE; -SUGAMMADEX SODIUM 500 MG/5 ML VIAL (BRIDION) As Ordered ONE; -ceFAZolin SOD 2 GM in IV 1 EA IV ONE; -propofoL 200 MG/20 ML VIAL As Ordered ONE
[2021-09-01 10:08] LABS: FREE T4 0.98 NG/DL (0.76-1.46); THYROID STIMULATING HORMONE 0.794 uIU/ML (0.358-3.740)
== END ==
LOC: M LAB 08:25
PROVIDERS: ATTEND Internal Medicine Gastroenterology
DX: R11.2 Nausea with vomiting, unspecified (principal)

== ENCOUNTER → 2021-09-25 | Outpatient (CLI) | payer MEDICAID, OTHER ==
[~2021-09-25] MED LIST changes: +BUSP10TA; +METO1TAB32 PO
== END ==
LOC: M LABSMTC 10:34
PROVIDERS: ATTEND Anesthesiology
DX: Z01.812 Encounter for preprocedural laboratory examination (principal); Z11.52 Encounter for screening for COVID-19

== ENCOUNTER 2021-09-30 12:52 | Day surgery (SDC) | payer OTHER ==
[~2021-09-30] VITALS: Ht 165.1 cm; Wt 57.2 kg
[~2021-09-30 12:52] MED LIST changes: +NS 1,000 ML IV ONE
[2021-09-30] MEDS ORDERED: propofoL 200 MG/20 ML VIAL As Ordered ONE (14:31)
[2021-09-30] MEDS ORDERED: LIDOCAINE 2% MDV 20ML VIAL As Ordered ONE (14:31)
[2021-09-30] MEDS ORDERED: fentaNYL 100 MCG/2 ML INJECTION As Ordered ONE (14:31)
[2021-09-30] MEDS ORDERED: GLYCOPYRROLATE INJ 0.2 MG/ML 2 ML VIAL As Ordered ONE (14:31)
[2021-09-30 15:54] VITALS: BP 111/68
== END 2021-09-30 15:57 | disposition home or self-care (01) ==
LOC: M OPP 12:52
PROVIDERS: ATTEND Internal Medicine Gastroenterology
DX: K58.2 Mixed irritable bowel syndrome (principal); Q43.8 Other specified congenital malformations of intestine; K58.1 Irritable bowel syndrome with constipation; K64.8 Other hemorrhoids; R10.84 Generalized abdominal pain; R12 Heartburn; R11.2 Nausea with vomiting, unspecified; Z79.899 Other long term (current) drug therapy; Z88.8 Allergy status to other drugs, medicaments and biological substances; Z91.048 Other nonmedicinal substance allergy status
CPT/HCPCS: 43239; 45380; 88305; J3010

== ENCOUNTER → 2021-10-10 | Outpatient (CLI) | payer OTHER ==
[~2021-10-10] MED LIST changes: -NS 1,000 ML IV ONE
== END ==
LOC: M RAD 08-29 08:15
PROVIDERS: ATTEND Internal Medicine Gastroenterology
DX: K31.84 Gastroparesis (principal)
CPT/HCPCS: 78264; A9541

== ENCOUNTER 2021-10-19 19:55 | Emergency (ER) | payer OTHER ==
[~2021-10-19] VITALS: Ht 162.6 cm; Wt 56.3 kg
[2021-10-19 19:56] VITALS: BP 129/84
[2021-10-19] MEDS ORDERED: hydrOXYzine 25 MG TAB PO ONE (21:25)
[2021-10-19] MEDS ORDERED: HYDR-3363 PO (21:44)
== END 2021-10-19 22:09 | disposition home or self-care (01) ==
LOC: M ED 19:55
DX: F41.1 Generalized anxiety disorder (principal); F31.9 Bipolar disorder, unspecified; Z88.8 Allergy status to other drugs, medicaments and biological substances; Z91.048 Other nonmedicinal substance allergy status; Z79.899 Other long term (current) drug therapy; F17.210 Nicotine dependence, cigarettes, uncomplicated

== ENCOUNTER → 2021-10-28 | Outpatient (CLI) | payer OTHER | LOC: M RAD 09:15 | PROVIDERS: ATTEND Internal Medicine Gastroenterology | DX: R11.2 Nausea with vomiting, unspecified (principal) | CPT/HCPCS: 78227; A9537 ==

== ENCOUNTER → 2021-12-08 | Outpatient (CLI) | payer OTHER | LOC: M RAD 10:12 | PROVIDERS: ATTEND Physician Assistant Medical | DX: R10.84 Generalized abdominal pain (principal); R19.8 Other specified symptoms and signs involving the digestive system and abdomen; R14.3 Flatulence ==

== ENCOUNTER → 2022-02-11 | Outpatient (CLI) | payer OTHER ==
[~2022-02-11] MED LIST changes: +CONC36TA4 PO
== END ==
LOC: M LABSMTC 09:42
PROVIDERS: ATTEND Anesthesiology
DX: Z01.812 Encounter for preprocedural laboratory examination (principal); Z11.52 Encounter for screening for COVID-19

== ENCOUNTER → 2022-02-23 | Outpatient (CLI) | payer OTHER | LOC: M LABSMTC 10:14 | PROVIDERS: ATTEND Anesthesiology | DX: Z11.52 Encounter for screening for COVID-19 (principal); Z20.822 Contact with and (suspected) exposure to COVID-19 ==

== ENCOUNTER → 2022-04-19 | Outpatient (CLI) | payer OTHER | LOC: M LABSMTC 09:44 | PROVIDERS: ATTEND Anesthesiology | DX: Z01.812 Encounter for preprocedural laboratory examination (principal); Z11.52 Encounter for screening for COVID-19 ==

== ENCOUNTER 2022-04-22 06:17 | Day surgery (SDC) | payer OTHER ==
[~2022-04-22] VITALS: Ht 162.6 cm; Wt 55.0 kg
[~2022-04-22 06:17] MED LIST changes: +ACETAMINOPHEN 500 MG TAB PO ONE; +AMPICILLIN SOD/SULBACTAM SOD 3 GM in D5W MINI-BAG PLUS 100 ML IV ONE; +CelecoXIB 400 MG CAP PO ONE; +INDOCYANINE GREEN 25MG VIAL (IC-GREEN) IV ONE; +ceFAZolin SOD 2 GM in IV 1 EA IV ONE
[2022-04-22] MEDS ORDERED: CONCERTA PO (06:43)
[2022-04-22] MEDS ORDERED: ACETAMINOPHEN 1000MG 100ML IV BTL (OFIRMEV) (J0131 PER 10MG) As Ordered ONE ×2 (06:54→07:57)
[2022-04-22 06:56] LABS: BLOOD UREA NITROGEN 13 MG/DL (7-18); CALCIUM LEVEL 8.7 MG/DL (8.5-10.1); CARBON DIOXIDE LEVEL 26 MEQ/L (21-32); CHLORIDE LEVEL 109 MEQ/L (98-107); CREATININE FOR GFR 0.76 MG/DL (0.55-1.30); GLOMERULAR FILTRATION RATE > 60.0 (>60); GLUCOSE, FASTING 95 MG/DL (70-100); POTASSIUM SERUM 3.6 MEQ/L (3.5-5.1); SODIUM LEVEL 140 MEQ/L (136-145)
[2022-04-22] MEDS ORDERED: dexameTHASONE 4 MG/ML 1ML VIAL (J1100 PER 1MG) As Ordered ONE (06:56)
[2022-04-22] MEDS ORDERED: LIDOCAINE 2% 100MG/5ML SDV (FOR ANES.) As Ordered ONE (06:56)
[2022-04-22] MEDS ORDERED: ONDANSETRON 4MG 2ML VIAL As Ordered ONE (06:56)
[2022-04-22] MEDS ORDERED: ROCURONIUM BROMIDE 50 MG/5 ML VIAL As Ordered ONE (06:56)
[2022-04-22] MEDS ORDERED: propofoL 200 MG/20 ML VIAL As Ordered ONE (06:56)
[2022-04-22] MEDS ORDERED: HYDROmorphone HCL 2MG/ML 1ML VIAL As Ordered ONE (07:00)
[2022-04-22] MEDS ORDERED: fentaNYL 250 MCG/5 ML INJECTION As Ordered ONE (07:00)
[2022-04-22] MEDS ORDERED: MIDAZOLAM INJ 2MG/2ML VIAL (J2250 PER 1MG) As Ordered ONE (07:01)
[2022-04-22] MEDS ORDERED: LIDOCAINE 1% SDV 30ML VIAL As Ordered ONE ×2 (07:10→07:13)
[2022-04-22] MEDS ORDERED: INDOCYANINE GREEN 25MG VIAL (IC-GREEN) As Ordered ONE ×2 (07:10→07:13)
[2022-04-22] MEDS ORDERED: BUPIVACAINE HCL 0.25% 30ML VIAL As Ordered ONE ×2 (07:11→07:13)
[2022-04-22] MEDS ORDERED: SUGAMMADEX SODIUM 500 MG/5 ML VIAL (BRIDION) As Ordered ONE (08:22)
[2022-04-22] MEDS ORDERED: SEVOFLURANE INHAL SOLN 250 ML BTL As Ordered ONE (08:41)
[2022-04-22] MEDS ORDERED: HYDROMORPHONE HCL 0.5 MG/ 0.5 ML SYRINGE (J1170 PER 1) IV PRN (09:15)
[2022-04-22] MEDS ORDERED: ONDANSETRON 4MG 2ML VIAL IV PRN (09:15)
[2022-04-22] MEDS ORDERED: OXYC1TAB23 PO (09:15)
[2022-04-22] MEDS ORDERED: LR 1,000 ML IV SCH (09:15)
[2022-04-22] MEDS ORDERED: METOCLOPRAMIDE INJ 10MG/2ML VIAL (J2765 PER 1) IV PRN (09:15)
[2022-04-22] MEDS ORDERED: fentaNYL 100 MCG/2 ML INJECTION As Ordered ONE (09:20)
[2022-04-22] MEDS: fentaNYL 100 MCG/2 ML INJECTION IV PRN ×3 (09:21→09:31)
[2022-04-22] MEDS ORDERED: PERCOCET 5MG/325MG TAB PO PRN ×2 (09:30)
[2022-04-22] MEDS: oxyCODONE 5MG TAB PO PRN ×2 (09:31→10:30)
[2022-04-22 11:30] VITALS: BP 118/68
== END 2022-04-22 11:30 | disposition home or self-care (01) ==
LOC: M SDC 06:17
PROVIDERS: ATTEND Surgery
DX: K81.1 Chronic cholecystitis (principal); R11.2 Nausea with vomiting, unspecified; I51.9 Heart disease, unspecified; I34.1 Nonrheumatic mitral (valve) prolapse; I49.3 Ventricular premature depolarization; F41.9 Anxiety disorder, unspecified; F20.0 Paranoid schizophrenia; F32.A Depression, unspecified; Z79.899 Other long term (current) drug therapy; Z88.8 Allergy status to other drugs, medicaments and biological substances; F17.210 Nicotine dependence, cigarettes, uncomplicated
CPT/HCPCS: 36415; 47563; 64488; 80048; 88304; J0295; J1100; J1170; J2250; J2405; J3010; Q9968; S2900

== ENCOUNTER 2022-07-07 08:54 | Emergency (ER) | payer OTHER ==
[~2022-07-07] VITALS: Ht 162.6 cm; Wt 52.3 kg
[~2022-07-07 08:54] MED LIST changes: -ACETAMINOPHEN 500 MG TAB PO ONE; -AMPICILLIN SOD/SULBACTAM SOD 3 GM in D5W MINI-BAG PLUS 100 ML IV ONE; +CONCERTA PO; -CelecoXIB 400 MG CAP PO ONE; -INDOCYANINE GREEN 25MG VIAL (IC-GREEN) IV ONE; -ceFAZolin SOD 2 GM in IV 1 EA IV ONE
[2022-07-07] MEDS ORDERED: BUSP10TA (09:09)
[2022-07-07] MEDS ORDERED: ARIP1TAB6 (09:09)
[2022-07-07] MEDS ORDERED: QUET100T2 (09:09)
[2022-07-07 09:25] LABS: BASO % 0.3 % (0.0-1.0); EOS # 0.2 10^3/uL (0.0-0.5); EOS % 2.1 % (0.0-3.0); HEMATOCRIT 39.6 % (36.0-47.0); HEMOGLOBIN 13.3 g/dl (12.0-15.5); LYMPH % 26.7 % (24.0-44.0); MEAN CORPUSCULAR HEMOGLOBIN 32.1 pg (27.0-33.0); MEAN CORPUSCULAR HGB CONC 33.6 g/dl (32.0-36.5); MEAN CORPUSCULAR VOLUME 95.7 fl (80.0-96.0); MONO # 0.3 10^3/uL (0.0-0.8); MONO % 4.4 % (2.0-8.0); NEUTROPHILS % 66.2 % (36.0-66.0); PLATELET COUNT, AUTOMATED 195 10^3/uL (150-450); RED BLOOD COUNT 4.14 10^6/uL (4.00-5.40); WHITE BLOOD COUNT 7.5 10^3/uL (4.0-10.0)
[2022-07-07 09:44] LABS: CARBON DIOXIDE LEVEL 28 MMOL/L (20-31); CHLORIDE LEVEL 108 MMOL/L (98-107); SODIUM LEVEL 143 MMOL/L (136-145)
[2022-07-07 09:50] LABS: BLOOD UREA NITROGEN 11 MG/DL (9-23); CALCIUM LEVEL 8.8 MG/DL (8.5-10.1); GLUCOSE, FASTING 154 MG/DL (60-100)
[2022-07-07 09:52] LABS: CREATININE FOR GFR 0.75 MG/DL (0.55-1.30); GLOMERULAR FILTRATION RATE > 60.0 (>60)
[2022-07-07 10:03] LABS: RSV AMPLIFICATION NEGATIVE (NEGATIVE)
[2022-07-07 10:38] VITALS: BP 106/75
== END 2022-07-07 10:45 | disposition home or self-care (01) ==
LOC: EDBD 08:54 → M ED 08:54
DX: R55 Syncope and collapse (principal); A08.4 Viral intestinal infection, unspecified; S60.811A Abrasion of right wrist, initial encounter; V48.5XXA Car driver injured in noncollision transport accident in traffic accident, initial encounter; I10 Essential (primary) hypertension; F31.9 Bipolar disorder, unspecified; K58.9 Irritable bowel syndrome, unspecified; F17.200 Nicotine dependence, unspecified, uncomplicated; Z88.8 Allergy status to other drugs, medicaments and biological substances; Z88.6 Allergy status to analgesic agent; Z91.048 Other nonmedicinal substance allergy status; Z79.899 Other long term (current) drug therapy

== ENCOUNTER → 2022-08-05 | Outpatient (REF) ==
[~2022-08-05] MED LIST changes: +ARIP1TAB6; +QUET100T2
== END ==
LOC: M LAB 14:11
PROVIDERS: ATTEND Nurse Practitioner Family
DX: Z02.1 Encounter for pre-employment examination (principal)

== ENCOUNTER 2023-01-17 14:00 | Emergency (ER) | payer OTHER ==
[~2023-01-17] VITALS: Ht 162.6 cm; Wt 54.5 kg
[2023-01-17 14:00] VITALS: TEMP 97.3
[2023-01-17] MEDS ORDERED: DILT180C70 (14:07)
[2023-01-17 14:45] LABS: BASO % 0.3 % (0.0-1.0); EOS # 0.2 10^3/uL (0.0-0.5); EOS % 2.5 % (0.0-3.0); HEMATOCRIT 40.1 % (36.0-47.0); HEMOGLOBIN 14.6 g/dl (12.0-15.5); LYMPH # 1.9 10^3/uL (1.5-5.0); LYMPH % 30.7 % (24.0-44.0); MEAN CORPUSCULAR HEMOGLOBIN 32.1 pg (27.0-33.0); MEAN CORPUSCULAR HGB CONC 36.4 g/dl (32.0-36.5); MEAN CORPUSCULAR VOLUME 88.1 fl (80.0-96.0); MONO # 0.4 10^3/uL (0.0-0.8); MONO % 7.1 % (2.0-8.0); NEUTROPHILS # 3.6 10^3/uL (1.5-8.5); NEUTROPHILS % 59.2 % (36.0-66.0); PLATELET COUNT, AUTOMATED 221 10^3/uL (150-450); RED BLOOD COUNT 4.55 10^6/uL (4.00-5.40); WHITE BLOOD COUNT 6.1 10^3/uL (4.0-10.0)
[2023-01-17 15:20] LABS: LIPASE 29 U/L (12-53)
[2023-01-17 15:22] LABS: ALBUMIN 4.5 G/DL (3.2-5.2); ALKALINE PHOSPHATASE 72 U/L (46-116); ALT/SGPT 16 U/L (7.0-40); AST/SGOT 13 U/L (<34); BILIRUBIN,DIRECT 0.3 MG/DL (<0.4); BILIRUBIN,TOTAL 0.7 MG/DL (0.3-1.2); BLOOD UREA NITROGEN 10 MG/DL (9-23); CALCIUM LEVEL 9.4 MG/DL (8.5-10.1); CARBON DIOXIDE LEVEL 20 MMOL/L (20-31); CHLORIDE LEVEL 110 MMOL/L (98-107); CK-MB VALUE MASS < 1.0 NG/ML (<3.6); CREATININE FOR GFR 0.68 MG/DL (0.55-1.30); GLOMERULAR FILTRATION RATE > 60.0 (>60); GLUCOSE, FASTING 114 MG/DL (60-100); MAGNESIUM LEVEL 1.7 MG/DL (1.8-2.4); POTASSIUM SERUM 3.6 MMOL/L (3.5-5.1); SODIUM LEVEL 139 MMOL/L (136-145); TOTAL PROTEIN 6.7 G/DL (5.7-8.2)
[2023-01-17 15:24] LABS: FREE T4 1.15 NG/DL (0.89-1.76); THYROID STIMULATING HORMONE 1.082 uIU/ML (0.55-4.78)
[2023-01-17 15:26] LABS: CPK CREATINE PHOSPHOKINASE 38 U/L (34-145); MB/CK RELATIVE INDEX 2.63 (< OR =4)
[2023-01-17] MEDS ORDERED: MAG SULF 1GM/100ML (MAG RUN) 1 GM in IV 1 EA IV ONE (15:30)
[2023-01-17 16:00] VITALS: BP 116/67; O2SAT 100
== END 2023-01-17 17:37 | disposition home or self-care (01) ==
LOC: M ED 14:00
DX: R53.83 Other fatigue (principal); I10 Essential (primary) hypertension; F90.9 Attention-deficit hyperactivity disorder, unspecified type; F31.9 Bipolar disorder, unspecified; F20.9 Schizophrenia, unspecified; Z88.6 Allergy status to analgesic agent; Z88.8 Allergy status to other drugs, medicaments and biological substances
CPT/HCPCS: 71045; 80048; 80076; 82550; 82553; 83690; 83735; 84439; 84443; 85025; 93005; 93041; 94760; 96365; 99284; J3475

== ENCOUNTER → 2023-04-27 | Outpatient (REF) | payer OTHER ==
[~2023-04-27] MED LIST changes: +DILT180C70
== END ==
LOC: M LAB REF 18:17
PROVIDERS: ATTEND Internal Medicine Endocrinology, Diabetes & Metabolism
DX: E04.1 Nontoxic single thyroid nodule (principal)

== ENCOUNTER → 2023-12-15 | Outpatient (REF) | payer OTHER, MEDICAID | LOC: M SFHCWAGY 12:41 | PROVIDERS: ATTEND Obstetrics & Gynecology | DX: Z12.72 Encounter for screening for malignant neoplasm of vagina (principal) ==

== ENCOUNTER → 2023-12-15 | Outpatient (CLI) | payer OTHER | LOC: M WHC 08:26 | PROVIDERS: ATTEND Obstetrics & Gynecology | DX: Z12.39 Encounter for other screening for malignant neoplasm of breast (principal) ==

== ENCOUNTER → 2024-01-04 | Outpatient (CLI) | payer OTHER | LOC: M WHC 12:18 | PROVIDERS: ATTEND Obstetrics & Gynecology | DX: Z12.39 Encounter for other screening for malignant neoplasm of breast (principal); R92.8 Other abnormal and inconclusive findings on diagnostic imaging of breast ==

== ENCOUNTER 2024-08-27 09:10 | Emergency (ER) | payer OTHER ==
[~2024-08-27] VITALS: Ht 160 cm; Wt 62.5 kg
[~2024-08-27 09:10] MED LIST changes: +ONDA-282 PO; -ONDA4TAB6 PO
[2024-08-27 11:31] VITALS: BP 134/73; TEMP 97.5; O2SAT 100
== END 2024-08-27 11:46 | disposition home or self-care (01) ==
LOC: M ED 09:10
DX: S93.402A Sprain of unspecified ligament of left ankle, initial encounter (principal); Y92.019 Unspecified place in single-family (private) house as the place of occurrence of the external cause; Y93.9 Activity, unspecified; Y99.9 Unspecified external cause status; G90.A Postural orthostatic tachycardia syndrome [POTS]; F17.210 Nicotine dependence, cigarettes, uncomplicated; Z88.8 Allergy status to other drugs, medicaments and biological substances; Z91.048 Other nonmedicinal substance allergy status; Z79.899 Other long term (current) drug therapy

== ENCOUNTER → 2024-10-04 | Outpatient (CLI) | payer OTHER | LOC: M WHC 07:56 | PROVIDERS: ATTEND Obstetrics & Gynecology | DX: R92.8 Other abnormal and inconclusive findings on diagnostic imaging of breast (principal); N63.10 Unspecified lump in the right breast, unspecified quadrant; N63.20 Unspecified lump in the left breast, unspecified quadrant ==

== ENCOUNTER 2024-11-03 07:50 | Outpatient (RCR) | payer OTHER | END 2024-11-06 | LOC: M PT 07:50 | PROVIDERS: ATTEND Physician Assistant | DX: S93.402A Sprain of unspecified ligament of left ankle, initial encounter (principal); X58.XXXA Exposure to other specified factors, initial encounter; Y92.9 Unspecified place or not applicable; Y93.9 Activity, unspecified; Y99.9 Unspecified external cause status ==

== ENCOUNTER 2024-12-01 13:11 | Outpatient (RCR) | payer OTHER ==
[~2024-12-01 13:11] MED LIST changes: +METH36TA13 PO; -METH36TA5 PO; -NADO20TA PO; +NADO20TA38 PO
== END 2024-12-06 ==
LOC: M PT 13:11
PROVIDERS: ATTEND Physician Assistant
DX: S93.402A Sprain of unspecified ligament of left ankle, initial encounter (principal); X58.XXXA Exposure to other specified factors, initial encounter; Y92.9 Unspecified place or not applicable; Y93.9 Activity, unspecified; Y99.9 Unspecified external cause status

== ENCOUNTER → 2024-12-18 | Outpatient (CLI) | payer OTHER | LOC: M WHC 07:56 | PROVIDERS: ATTEND Obstetrics & Gynecology | DX: R92.8 Other abnormal and inconclusive findings on diagnostic imaging of breast (principal); R92.343 Mammographic extreme density, bilateral breasts ==

== ENCOUNTER → 2024-12-18 | Outpatient (REF) | payer MEDICAID, OTHER ==
[2024-12-18 17:15] LABS: Trichomonas vaginalis (AMP) NOT DETECTED (NEGATIVE)
[2024-12-18 17:38] LABS: GC DNA AMPLIFICATION NEGATIVE (NEGATIVE)
[2024-12-20 16:52] LABS: HPV APTIMA Not Detected (Not Detected)
== END ==
LOC: M SFHCWAGY 15:08
PROVIDERS: ATTEND Obstetrics & Gynecology
DX: Z12.72 Encounter for screening for malignant neoplasm of vagina (principal)

== ENCOUNTER → 2025-02-23 | Outpatient (REF) | payer OTHER, MEDICAID ==
[2025-02-23 15:44] LABS: PLATELET COUNT, AUTOMATED 246 10^3/uL (150-450)
[2025-02-23 16:19] LABS: TOTAL 25(OH) VITAMIN D 38.2 NG/ML (20.0-100.0)
[2025-02-23 16:22] LABS: ALT/SGPT 26 U/L (7.0-40); AST/SGOT 24 U/L (<34); CALCIUM LEVEL 8.8 MG/DL (8.5-10.1); CARBON DIOXIDE LEVEL 25 MMOL/L (20-31); CHLORIDE LEVEL 108 MMOL/L (98-107); CHOLESTEROL LEVEL 143 MG/DL (<200); CHOLESTEROL RISK RATIO 3.55 (<5); CREATININE FOR GFR 0.80 MG/DL (0.55-1.30); GLOMERULAR FILTRATION RATE > 90.0 (>60); LDL CHOLESTEROL 87.0 MG/DL (<100); NON-HDL-C 102.8 MG/DL; POTASSIUM SERUM 4.1 MMOL/L (3.5-5.1); SODIUM LEVEL 142 MMOL/L (136-145); TRIGLYCERIDES LEVEL 79 MG/DL (<150)
[2025-02-23 16:34] LABS: ESTIMATED AVERAGE GLUCOSE 91.0 MG/DL (60-110)
== END ==
LOC: M LAB REF 14:51
PROVIDERS: ATTEND Student in an Organized Health Care Education/Training Program
DX: E55.9 Vitamin D deficiency, unspecified (principal); Z68.25 Body mass index [BMI] 25.0-25.9, adult

== ENCOUNTER → 2025-06-13 | Outpatient (CLI) | payer OTHER ==
[~2025-06-13] MED LIST changes: +FLUD0.1T PO; +FLUO60TA PO; -IBUP-1022 PO; +IBUP600T42 PO; +PROP10TA56 PO; +SUPPORT PO
[2025-06-13 14:25] LABS: ALT/SGPT 19 U/L (7.0-40); AST/SGOT 17 U/L (<34); CALCIUM LEVEL 9.4 MG/DL (8.5-10.1); CARBON DIOXIDE LEVEL 25 MMOL/L (20-31); CHLORIDE LEVEL 110 MMOL/L (98-107); CREATININE FOR GFR 0.72 MG/DL (0.55-1.30); GLOMERULAR FILTRATION RATE > 90.0 (>60); POTASSIUM SERUM 4.3 MMOL/L (3.5-5.1); SODIUM LEVEL 142 MMOL/L (136-145)
[2025-06-13 14:27] LABS: PLATELET COUNT, AUTOMATED 296 10^3/uL (150-450)
== END ==
LOC: M PLALAB 11:48
PROVIDERS: ATTEND Urology
DX: N39.3 Stress incontinence (female) (male) (principal)

== ENCOUNTER → 2025-06-18 | Outpatient (CLI) | payer OTHER ==
[2025-06-18 13:38] LABS: APPEARANCE, URINE CLEAR (CLEAR); BACTERIA, URINE AUTO 2+ (NEGATIVE); BILIRUBIN, URINE AUTO NEGATIVE (NEGATIVE); BLOOD, URINE BLOOD NEGATIVE (NEGATIVE); GLUCOSE, URINE (UA) AUTO NEGATIVE (NEGATIVE); KETONE, URINE AUTO NEGATIVE (NEGATIVE); LEUKOCYTE ESTERASE, URINE AUTO NEGATIVE (NEGATIVE); NITRITE, URINE AUTO NEGATIVE (NEGATIVE); PROTEIN, URINE AUTO NEGATIVE (NEGATIVE); RBC, URINE AUTO 0 /HPF (0-3); SPECIFIC GRAVITY URINE AUTO 1.006 (1.002-1.035); SQUAMOUS EPITHELIAL CELL UR AU 1 /HPF (0-6); UROBILINOGEN, URINE AUTO 0.2 mg/dL (0.0-2.0); WBC, URINE AUTO 0 /HPF (0-3)
== END ==
LOC: M PLALAB 11:55
PROVIDERS: ATTEND Urology
DX: N39.3 Stress incontinence (female) (male) (principal)

== ENCOUNTER 2025-06-25 09:56 | Day surgery (SDC) | payer OTHER, MEDICAID ==
[~2025-06-25] VITALS: Ht 160 cm; Wt 65.9 kg
[2025-06-25] MEDS ORDERED: LR 1,000 ML IV SCH ×2 (10:05→13:55)
[2025-06-25] MEDS ORDERED: dexAMETHasone 4 MG/ML 1 ML VIAL As Ordered ONE (11:31)
[2025-06-25] MEDS ORDERED: LIDOCAINE 2% 100 MG/5 ML SDV (FOR ANES.) As Ordered ONE (11:31)
[2025-06-25] MEDS ORDERED: ONDANSETRON 4MG/2ML VIAL As Ordered ONE (11:31)
[2025-06-25] MEDS ORDERED: MIDAZOLAM INJ 2 MG/2 ML VIAL As Ordered ONE (11:32)
[2025-06-25] MEDS ORDERED: KETOROLAC 30 MG/ML 1 ML VIAL As Ordered ONE (12:41)
[2025-06-25] MEDS ORDERED: LABETALOL 100 MG/20 ML VIAL As Ordered ONE (12:48)
[2025-06-25] MEDS: LIDOCAINE 2% JELLY 6 ML SYRINGE As Ordered ONE (13:05)
[2025-06-25] MEDS: ceFAZolin SOD 2 GM IV ONCE IV ONE (13:30)
[2025-06-25] MEDS: LIDOCAINE 2% 5 ML JELLY UROJET As Ordered ONE (13:39)
[2025-06-25] MEDS: HYDROMORPHONE HCL 0.5 MG/0.5 ML SYRINGE IV PRN ×2 (14:21→14:50)
[2025-06-25] MEDS: ONDANSETRON 4MG/2ML VIAL IV PRN (14:49)
[2025-06-25 16:20] VITALS: BP 170/99; TEMP 98.3; O2SAT 98
== END 2025-06-25 16:26 | disposition home or self-care (01) ==
LOC: M SDC 09:56
PROVIDERS: ATTEND Urology
DX: N39.3 Stress incontinence (female) (male) (principal); Z90.710 Acquired absence of both cervix and uterus; G90.A Postural orthostatic tachycardia syndrome [POTS]; F31.9 Bipolar disorder, unspecified; Z79.899 Other long term (current) drug therapy; F41.9 Anxiety disorder, unspecified; Z95.818 Presence of other cardiac implants and grafts; Z88.8 Allergy status to other drugs, medicaments and biological substances; Z91.048 Other nonmedicinal substance allergy status; Z88.6 Allergy status to analgesic agent; Z98.51 Tubal ligation status; Z87.891 Personal history of nicotine dependence
CPT/HCPCS: 51715; A4215; A4649; J0688; J1100; J1171; J1885; J1920; J2250; J2405; J3010; L8606